=== PATIENT | female | born 1950 | race Caucasian/White ===

== ENCOUNTER 2017-07-16 14:58 | Emergency (ER) | payer MEDICARE, SELFPAY ==
[2017-07-16 15:00] VITALS: BP 150/100; PULSE 88; RESP 16; TEMP 36.6; O2SAT 99; BMI 27.4
[2017-07-16 15:43] LABS: Basophils # 0.1 K/mm3 (0-0.2); Basophils % 0.8 % (0.1-2.0); Eosinophils # 0.1 K/mm3 (0.0-0.4); Eosinophils % 1.5 % (0.1-12.0); Hematocrit 42.1 % (37.0-47.0); Hemoglobin 13.5 g/dL (12.2-16.2); Lymphocytes # 1.3 K/mm3 (0.7-4.5); Lymphocytes % 22.6 K/mm3 (10-50); Mean Corpuscular HGB Conc 32.2 g/dL (31.8-35.4); Mean Corpuscular Hemoglobin 31.3 pg (27.0-31.2); Mean Corpuscular Volume 97.3 fl (81-99); Mean Platelet Volume 8.2 fl (7.4-10.4); Monocytes # 0.4 K/mm3 (0.1-1.0); Monocytes % 6.5 % (1.7-9.3); Neutrophils # 3.9 K/mm3 (1.8-7.8); Neutrophils % 68.6 % (37.0-80.0); Platelet Count 319 K/mm3 (142-424); Red Blood Count 4.33 M/mm3 (4.20-5.40); Red Cell Distribution Width 12.7 % (11.5-17.5); White Blood Count 5.7 K/mm3 (4.8-10.8)
[2017-07-16 15:46] LABS: Anion Gap 10.4 mEq/L (5-15); Blood Urea Nitrogen 9 mg/dL (7-18); Carbon Dioxide 29 mmol/L (21.0-32.0); Chloride 97 mmol/L (98-107); Creatinine Clearance Estimated 35 mL/min (0-300); Creatinine,Serum 1.83 mg/dL (0.55-1.02); Estimated Glomerular Filt Rate 28 ml/min (>60); GFR (African American) 34 ML/MIN (>60); Potassium 3.4 mmoL/L (3.5-5.1); Sodium 133 mmol/L (136-145)
[2017-07-16 15:48] LABS: Glucose 549 mg/dL (74-106); Lactic Acid 2.4 mmol/L (0.4-2.0)
--- NOTE | 2017-07-16 15:48 | HMH.EDSKAF ---
ED Disposition Clinical Impression: Skin abscess, Diabetes, Poor social situation Disposition: Home, Self-Care Condition on Discharge: Fair Instructions: DI for Skin Abscess Additional Instructions: 1- daily wound dressing. 2- wear loose cloth, no rubbing cloth. 3- start bactrim DS and muporicin . 4- see Kait Monsalve 5- obtain refill if needed. 6- return for fever or vomiting or worse rash. Prescriptions: Mupirocin Calcium [Mupirocin 2% Cream 15gm] 1 applicatio TP BID #1 tube Sulfamethoxazole/Trimethoprim [Bactrim DS tablet] 1 each PO BID #30 tab Referrals: Kait Escoto APRN [Primary Care Provider] - - Critical Care Critical Care Time: No Attestation: On 07/16/17, the high probability of a clinically significant, sudden or life threatening deterioration of the following system(s) required my full and direct attention, intervention and personal management. The time I documented below is in addition to time spent performing reported procedures but includes the following listed in this critical care notation. Medical Decision Making - Kaveh Inquiry Pt receiving controlled substance: No Kaveh was queried for this patient: No Vital Signs: 07/16/17 15:00 Temperature 97.8 F Temperature Source Oral Pulse Rate [Right Radial] 88 Respiratory Rate 16 Blood Pressure [Right Arm] 150/100 Blood Pressure Mean [Right Arm] 116 Blood Pressure Source [Right Arm] Automatic Cuff Blood Pressure Position [Right Arm] Sitting 02 Sat by Pulse Oximetry 99 Oxygen Delivery Method Room Air - Lab Data Lab Results 07/16/17 15:20: WBC 5.7, RBC 4.33, Hgb 13.5, Hct 42.1, MCV 97.3, MCH 31.3 H, MCHC 32.2, RDW 12.7, Plt Count 319, MPV 8.2, Neut % (Auto) 68.6, Lymph % (Auto) 22.6, [place] % (Auto) 6.5, Eos % (Auto) 1.5, Baso % (Auto) 0.8, Neut # (Auto) 3.9, Lymph # (Auto) 1.3, [place] # (Auto) 0.4, Eos # (Auto) 0.1, Baso # (Auto) 0.1 Result diagrams: 07/16/17 15:20 Orders (Tests/Meds): ORDERS Category Date Time Status Basic Metabolic Panel Stat Lab 07/16/17 15:20 Received Lactic Acid Stat Lab 07/16/17 15:20 Received Blood Culture Stat Micro 07/16/17 15:20 Received Skin/Abscess/FB HPI - General Chief complaint: Skin/Abscess/Foreign Body Stated complaint: possible spider bite Time Seen by Provider: 07/16/17 15:35 Mode of Arrival: EMS Limitations: No Limitations Description of Symptoms (Recalled from ER Triage Doc. by RN): AREA ON LLQ FOR TWO WEEKS. AREA DRAINING YELLOW, PURULENT DRAINAGE. PT USED ALCOHOL TO CLEAN A COUPLE OF TIMES. - History of Present Illness HPI narrative: 67 years old white female diabetic who developed a anterior abdominal wall skin abscess a week ago. Had no ride to go to her primary care physician but she did today so she came to the ER. The patient denies having any fever or chills nausea vomiting or chest pain. He does have a pinkish purulent discharge. MD complaint: rash, abscess/boil Onset (ago): day(s) (7 days.) Tetanus up to date: unsure Severity: mild Consistency: constant Relieving factors: none Exacerbating factors: none Context: none Associated symptoms: denies other symptoms - Related Data Previous Rx's Medication Instructions Recorded Mupirocin Calcium [Mupirocin 2% 1 applicatio TP BID #1 tube 07/16/17 Cream 15gm] Sulfamethoxazole/Trimethoprim 1 each PO BID #30 tab 07/16/17 [Bactrim DS tablet] Allergies Allergy/AdvReac Type Severity Reaction Status Date / Time codeine [CODEINE] Allergy Mild Unverified 04/18/17 14:51 STRAWBERRIES (FOOD) Allergy Intermediate RASH, SOB, Uncoded 04/18/17 14:51 ITCHING [facility] History I have reviewed the patient's past medical history: Yes Medical History: Reports:: Diabetes Mellitus Type 2 Denies:: Cancer, Diabetes Mellitus Type 1, MRSA Amputation: No Fractures: No - Social History Alcohol Intake: never - Psychiatric History Expresses thoughts of harming self/others: None S
[2017-07-16 15:49] LABS: Reflex Lactic Add Lactic Reflex
--- NOTE | 2017-07-16 15:51 | ED_ITS ---
ED Disposition Clinical Impression: Skin abscess, Diabetes, Poor social situation Disposition: Home, Self-Care Condition on Discharge: Fair Instructions: DI for Skin Abscess Additional Instructions: 1- daily wound dressing. 2- wear loose cloth, no rubbing cloth. 3- start bactrim DS and muporicin . 4- see Kait Monsalve 5- obtain refill if needed. 6- return for fever or vomiting or worse rash. Prescriptions: Mupirocin Calcium [Mupirocin 2% Cream 15gm] 1 applicatio TP BID #1 tube Sulfamethoxazole/Trimethoprim [Bactrim DS tablet] 1 each PO BID #30 tab Referrals: Kait Escoto APRN [Primary Care Provider] - - Critical Care Critical Care Time: No Attestation: On 07/16/17, the high probability of a clinically significant, sudden or life threatening deterioration of the following system(s) required my full and direct attention, intervention and personal management. The time I documented below is in addition to time spent performing reported procedures but includes the following listed in this critical care notation. Medical Decision Making - Kaveh Inquiry Pt receiving controlled substance: No Kaveh was queried for this patient: No Vital Signs: 07/16/17 15:00 Temperature 97.8 F Temperature Source Oral Pulse Rate [Right Radial] 88 Respiratory Rate 16 Blood Pressure [Right Arm] 150/100 Blood Pressure Mean [Right Arm] 116 Blood Pressure Source [Right Arm] Automatic Cuff Blood Pressure Position [Right Arm] Sitting 02 Sat by Pulse Oximetry 99 Oxygen Delivery Method Room Air - Lab Data Lab Results 07/16/17 15:20: WBC 5.7, RBC 4.33, Hgb 13.5, Hct 42.1, MCV 97.3, MCH 31.3 H, MCHC 32.2, RDW 12.7, Plt Count 319, MPV 8.2, Neut % (Auto) 68.6, Lymph % (Auto) 22.6, [place] % (Auto) 6.5, Eos % (Auto) 1.5, Baso % (Auto) 0.8, Neut # (Auto) 3.9 , Lymph # (Auto) 1.3, [place] # (Auto) 0.4, Eos # (Auto) 0.1, Baso # (Auto) 0.1 Result diagrams: 07/16/17 15:20 Orders (Tests/Meds): ORDERS Category Date Time Status Basic Metabolic Panel Stat Lab 07/16/17 15:20 Received Lactic Acid Stat Lab 07/16/17 15:20 Received Blood Culture Stat Micro 07/16/17 15:20 Received Skin/Abscess/FB HPI - General Chief complaint: Skin/Abscess/Foreign Body Stated complaint: possible spider bite Time Seen by Provider: 07/16/17 15:35 Mode of Arrival: EMS Limitations: No Limitations Description of Symptoms (Recalled from ER Triage Doc. by RN): AREA ON LLQ FOR TWO WEEKS. AREA DRAINING YELLOW, PURULENT DRAINAGE. PT USED ALCOHOL TO CLEAN A COUPLE OF TIMES. - History of Present Illness HPI narrative: 67 years old white female diabetic who developed a anterior abdominal wall skin abscess a week ago. Had no ride to go to her primary care physician but she did today so she came to the ER. The patient denies having any fever or chills nausea vomiting or chest pain. He does have a pinkish purulent discharge. MD complaint: rash, abscess/boil Onset (ago): day(s) (7 days.) Tetanus up to date: unsure Severity: mild Consistency: constant Relieving factors: none Exacerbating factors: none Context: none Associated symptoms: denies other symptoms - Related Data Previous Rx's Medication Instructions Recorded Mupirocin Calcium [Mupirocin 2% 1 applicatio TP BID #1 tube 07/16/17 Cream 15
[2017-07-16 17:31] VITALS: BP 153/100; PULSE 88; RESP 16; TEMP 36.6; O2SAT 97
== END 2017-07-16 17:15 | disposition home or self-care (01) ==
PROVIDERS: Emergency Provider Emergency Medicine; Family Provider Family Medicine; PCP Nurse Practitioner Family
DX: L02.211 Cutaneous abscess of abdominal wall (principal); E11.9 Type 2 diabetes mellitus without complications; Z88.6 Allergy status to analgesic agent
CPT/HCPCS: 80048; 83605; 85025; 87040; 87070; 87077; 87186; 87205; 99283

== ENCOUNTER 2018-04-05 09:12 | Inpatient (IN) ==
[2018-04-05 10:48] LABS: Blood Urea Nitrogen 82 mg/dL (7-18)
[2018-04-05 11:48] LABS: Basophils # 0.1 K/mm3 (0-0.2); Basophils % 0.5 % (0.1-2.0); Eosinophils # 0.2 K/mm3 (0.0-0.4); Eosinophils % 1.4 % (0.1-12.0); Hematocrit 40.7 % (37.0-47.0); Hemoglobin 12.1 g/dL (12.2-16.2); Lymphocytes # 2.2 K/mm3 (0.7-4.5); Lymphocytes % 18.4 % (10-50); Mean Corpuscular HGB Conc 29.7 g/dL (31.8-35.4); Mean Corpuscular Hemoglobin 30.6 pg (27.0-31.2); Mean Corpuscular Volume 102.9 fl (81-99); Mean Platelet Volume 8.8 fl (7.4-10.4); Monocytes # 0.5 K/mm3 (0.1-1.0); Monocytes % 3.9 % (1.7-9.3); Neutrophils # 8.9 K/mm3 (1.8-7.8); Neutrophils % 75.9 % (37.0-80.0); Platelet Count 346 K/mm3 (142-424); Red Blood Count 3.95 M/mm3 (4.20-5.40); Red Cell Distribution Width 14.2 % (11.5-17.5); White Blood Count 11.8 K/mm3 (4.8-10.8)
[2018-04-05 11:54] LABS: Albumin Level 2.2 gm/dL (3.4-5.0); Albumin/Globulin Ratio 0.4 (1.1-1.8); Anion Gap 11.2 mEq/L (5-15); Bilirubin,Total 0.2 mg/dL (0.2-1.0); Calcium 8.9 mg/dL (8.5-10.1); Globulin 4.9 gm/dl (1.3-3.2); Potassium 5.2 mmoL/L (3.5-5.1); Total Protein,Serum 7.1 gm/dL (6.4-8.2)
[2018-04-05 12:53] LABS: Microscopic, Urine URINE MICROSCOPIC (MICROSCOPIC)
[2018-04-05 12:54] LABS: Appearance,Urine Turbid (Clear); Bilirubin,Urine Negative (Negative); Blood, Urine 1+ (Negative); Color,Urine YELLOW (Yellow); Glucose,Urine (UA) TRACE (Negative); Ketones,Urine Negative (Negative); Leukocyte Esterase,Urine 3+ (Negative); Protein,Urine 2+ (Negative); Specific Gravity, Urine 1.025 (1.005-1.030); Urobilinogen,Urine 0.2 EU/dl (0.2)
[2018-04-05 13:25] LABS: WBC,Urine TNTC #/hpf (0-3)
[2018-04-05 13:26] LABS: Bacteria,Urine 2+ /lpf; Fine Granular Casts,Urine Occasional #/lpf (0); Squamous Epithelial Cell,Urine Occasional #/hpf (0-5)
--- NOTE | 2018-04-05 13:31 | Pharmacy Consult Notes ---
[facility] Pharmacy VTE Monitoring - Patient Demographics Admission date: 04/05/18 Report Date: 04/05/18 Time: 13:31 Allergies/Adverse Reactions: Patient Allergies strawberry Allergy (Intermediate, Verified 04/05/18 13:31) RASH,SOB,ITCHING codeine [CODEINE] Allergy (Mild, Verified 04/05/18 13:31) UNKNOWN Height: 1.63 m Weight: 69.853 kg - VTE Risk Labs: VTE Related Lab Results Hgb 12.1 g/dL (12.2-16.2) L 04/05/18 11:30 Hct 40.7 % (37.0-47.0) 04/05/18 11:30 Plt Count 346 K/mm3 (142-424) 04/05/18 11:30 BUN 81 mg/dL (7-18) H 04/05/18 11:30 Creatinine 2.30 mg/dL (0.55-1.02) H 04/05/18 11:30 Estimated Creat Clear 27 mL/min (50-200) 04/05/18 11:30 - Prophylaxis VTE Prophylaxis Ordered?: Yes Types of VTE Prophylaxis: Pharmacological Pharmacologic Type: Enoxaparin - VTE Diagnosis Confirmed Treatment or plan recommended: Continue Current Treatment
--- NOTE | 2018-04-05 16:59 | History & Physical Report ---
*Admission Date: 04/05/18 *Chief complaint: weakness, loss of appetite, weight loss *History of present illness: 68 year old female with a history of breast cancer, diabetes, hypertension, hyperlipidemia, CVA with left sided hemiplegia and hypothyroidism who resides at [facility] has had ongoing issues with weight loss over the last two months. Patient has lost approx 40 pounds over the last 2-3 months. She was started on Remeron for appetite and dietary supplements were added were added which continued weight loss. She was sent to ENT for evaluation of thyroid nodules who recommended FU US in 6 months. Soft tissue mass was found on the right side of her neck and she was scheduled for soft tissue US of the neck and CT of chest, abdomen and pelvis to evaluate for underlying pathology. Labs were obtained per radiology protocol on Monday which showed creatinine of 1.4 and potassium of 5.8. Lasix and potassium were stopped. Patient was brought to [facility] today for CT Scan and Ultrasound. Repeat labs showed BUN 82 with creatinine of around 2.3. Baseline creatine is less than 1. Patient was sent to outpatient infusion for IVF's and additional labs. She was found to have transaminitis, dehydration and UTI. Patient reports she feels "weak." Denies any cough, cold, congestion or urinary symptoms. Patient was direct admitted to acute care for IVF's, IV antibiotics and further evaluation. [facility] History I have reviewed the patient's past medical history: Yes Medical History: Reports:: Diabetes Mellitus Type 2 Denies:: Cancer, Diabetes Mellitus Type 1, Internal Pacemaker, MRSA Other Medical History: Reports: Hypothyroidism Other Surgeries: No: Pacemaker Amputation: No Fractures: No - *Social History Smoking Status: Never smoker Alcohol Intake: never Substance Use Type: crack/cocaine Occupational Status: disabled Housing: fpc - Psychiatric History Expresses thoughts of harming self/others: None Suicide Plan Description: No Plan Review of Systems - Review of Systems Review of systems:: pertinent systems reviewed and negative unless documented b elow - Constitutional Reports malaise, Reports weakness, Reports weight loss - *Neurologic Reports confusion, Reports other Comments: left sided hemiplegia Meds Home Medications Medication Instructions Recorded Confirmed Type Acetaminophen [Tylenol] 650 mg PO Q6HP PRN 04/05/18 04/05/18 History Albuterol Sulfate [Albuterol HFA 1 puff IH Q4HP PRN 04/05/18 04/05/18 History Inhaler] Aspirin [Aspirin 81mg chewable 81 mg PO DAILY 04/05/18 04/05/18 History tab] Atorvastatin Calcium [Atorvastatin 40 mg PO HS 04/05/18 04/05/18 History 40mg Tab] Ibuprofen [Motrin 600mg 600 mg PO BIDP PRN 04/05/18 04/05/18 History Tablet] Insulin Glargine,Hum.rec.anlog 15 unit SQ HS 04/05/18 04/05/18 History [Insulin Glargine 100 Units/mL 3mL flexpen] L. Acidophilus/Strept/LA P-Noah 1 cap PO DAILY 04/05/18 04/05/18 History [Jory-Q Probiotic Capsule] Levothyroxine Sodium 150 mcg PO DAILY 04/05/18 04/05/18 History [Levothyroxine 150mcg (0.15mg) Tab] Lisinopril [Lisinopril 40mg Tablet] 40 mg PO DAILY 04/05/18 04/05/18 History Loperamide HCl [Loperamide] 2 mg PO Q4HP PRN 04/05/18 04/05/18 History Metoprolol Tartrate 100 mg PO BID 04/05/18 04/05/18 History Mirtazapine [Remeron] 30 mg PO HS 04/05/18 04/05/18 History Multivit with Iron,Hematinic 1 each PO DAILY 04/05/18 04/05/18 History [Central-Jerry] PARoxetine HCl [Paxil] 40 mg PO HS 04/05/18 04/05/18 History cloNIDine HCl [cloNIDine 0.1mg 0.1 mg PO Q4HP PRN 04/05/18 04/05/18 History Tablet] raNITIdine HCl [Ranitidine HCl] 150 mg PO BID 04/05/18 04/05/18 History risperiDONE [Risperdal 0.25mg 0.25 mg PO HS 04/05/18 04/05/18 History Tablet] Allergies Allergy/AdvReac Type Severity Reaction Status Date / Time strawberry Allergy Intermediate RASH,SOB,IT Verified 04/05/18 13:31 [place] codeine [CODEINE] Allergy Mild UNKNOWN Verified 04/05/18 13:31 Exam Vital signs and Labs for Last 24 Hours: Temp Pulse Resp BP Pulse Ox 98.5 F 80 16 182/98 H 96 04/05/18 15:56 04/05/18 15:56 04/05/18 15:56 04/05/18 15:56 04/05/18 15:56 Laboratory Results - last 24 hr 04/05/18 10:17: BUN 82 H, Creatinine 2.32 H, Estimated GFR 21 L, Est GFR ( Amer) 25 L 04/05/18 11:30: WBC 11.8 H, RBC 3.95 L, Hgb 12.1 L, Hct 40.7, MCV 102.9 H, MCH 30.6, MCHC 29.7 L, RDW 14.2, Plt Count 346, MPV 8.8, Neut % (Auto) 75.9, Lymph % (Auto) 18.4, [place] % (Auto) 3.9, Eos % (Auto) 1.4, Baso % (Auto) 0.5, Neut # (Auto) 8.9 H, Lymph # (Auto) 2.2, [place] # (Auto) 0.5, Eos # (Auto) 0.2, Baso # (Auto) 0.1 04/05/18 11:30: Sodium 148 H, Potassium 5.2 H, Chloride 112 H, Carbon Dioxide 30, Anion Gap 11.2, BUN 81 H, Creatinine 2.30 H, Estimated Creat Clear 27, Estimated GFR 21 L, Est GFR ( Amer) 26 L, Glucose 420 H*, Calcium 8.9, Total Bilirubin 0.2, AST 81 H, ALT 102 H, Alkaline Phosphatase 264 H, Total Protein 7.1, Albumin 2.2 L, Globulin 4.9 H, Albumin/Globulin Ratio 0.4 L 04/05/18 11:30: Acetone Level None detected 04/05/18 12:20: Urine Color Yellow, Urine Appearance Turbid, Urine pH 6.0, Ur Specific [place] 1.025, Urine Protein 2+, Urine Glucose (UA) Trace, Urine Ketones Negative, Urine Blood 1+, Urine Nitrate Negative, Urine Bilirubin Negative, Urine Urobilinogen 0.2, Ur Leukocyte Esterase 3+ A, Urine WBC Tntc, Ur Squamous Epith Cells Occasional, Urine Bacteria 2+, Fine Granular Casts Occasional I & O for Last 24 hours: Intake & Output 04/03/18 04/04/18 04/05/18 04/06/18 11:59 11:59 11:59 11:59 Weight 154 lb 155 lb 5 oz Narrative: Alert and oriented to self. Pleasant, cooperative. Left sided facial droop. Left sided hemiplegia from previous CVA. Mucous membranes dry. Skin pale and dry. Lung sounds clear and equal. Rate and rhythm regular. No LE edema. Abdomen soft and nontender. Assessment and Plan (1) Dehydration Current visit: Yes Status: Acute Category: Medical Code(s): E86.0 - Dehydration (2) YURI (acute kidney injury) Current visit: Yes Status: Acute Category: Medical Code(s): N17.9 - Acute kidney failure, unspecified (3) Weight loss Current visit: Yes Status: Acute Category: Medical Code(s): R63.4 - Abnormal weight loss (4) Loss of appetite Current visit: Yes Status: Acute Category: Medical Code(s): R63.0 - Anorexia (5) UTI (urinary tract infection) Current visit: Yes Status: Acute Category: Medical Code(s): N39.0 - Urinary tract infection, site not specified (6) Transaminitis Current visit: Yes Status: Acute Category: Medical Code(s): R74.0 - Nonspecific elevation of levels of transaminase and lactic acid dehydrogenase [LDH] (7) Cerebrovascular accident Current visit: No Status: Chronic Qualifiers: CVA mechanism: unspecified Qualified Code(s): I63.9 - Cerebral infarction, unspecified Category: Medical Code(s): I63.9 - Cerebral infarction, unspecified (8) Diabetes Current visit: No Status: Chronic Qualifiers: Diabetes mellitus type: type 1 Diabetes mellitus complication status: with unspecified complications Qualified Code(s): E10.8 - Type 1 diabetes mellitus with unspecified complications Category: Medical Code(s): E11.9 - Type 2 diabetes mellitus without complications (9) HTN (hypertension) Current visit: No Status: Chronic Qualifiers: Hypertension type: unspecified Qualified Code(s): I10 - Essential (primary) hypertension Category: Medical Code(s): I10 - Essential (primary) hypertension - Assessment and plan all Dx Assessment and Plan for all problems:: I am curious to see what her CT Scans and Ultrasound will show. Aggressive hydration with IVF's. Speech therapy consult for swallowing eval as nurse reports coughing with liquids. Ceftriaxone for UTI. Blood and urine cultures pending. Will recheck labs in the am.
[2018-04-06 06:16] LABS: Basophils # 0.1 K/mm3 (0-0.2); Basophils % 0.6 % (0.1-2.0); Eosinophils # 0.4 K/mm3 (0.0-0.4); Hematocrit 36.2 % (37.0-47.0); Lymphocytes # 3.6 K/mm3 (0.7-4.5); Lymphocytes % 29.8 % (10-50); Mean Corpuscular HGB Conc 29.8 g/dL (31.8-35.4); Mean Corpuscular Hemoglobin 30.6 pg (27.0-31.2); Mean Corpuscular Volume 102.5 fl (81-99); Mean Platelet Volume 8.3 fl (7.4-10.4); Monocytes # 0.6 K/mm3 (0.1-1.0); Monocytes % 5.3 % (1.7-9.3); Neutrophils # 7.4 K/mm3 (1.8-7.8); Neutrophils % 61.3 % (37.0-80.0); Platelet Count 288 K/mm3 (142-424); Red Blood Count 3.53 M/mm3 (4.20-5.40); Red Cell Distribution Width 14.4 % (11.5-17.5); White Blood Count 12.1 K/mm3 (4.8-10.8)
[2018-04-06 06:23] LABS: Hemoglobin 10.8 g/dL (12.2-16.2)
[2018-04-06 06:28] LABS: Albumin Level 1.9 gm/dL (3.4-5.0); Albumin/Globulin Ratio 0.4 (1.1-1.8); Anion Gap 11.5 mEq/L (5-15); Bilirubin,Total 0.3 mg/dL (0.2-1.0); Calcium 8.2 mg/dL (8.5-10.1); Globulin 4.5 gm/dl (1.3-3.2); Total Protein,Serum 6.4 gm/dL (6.4-8.2)
[2018-04-06 06:41] LABS: Potassium 4.5 mmoL/L (3.5-5.1)
--- NOTE | 2018-04-06 08:49 | Progress Note ---
Internal Medicine - PN: Subj *Date: 04/06/18 *Time: 08:48 Interval history: Patient is much more alert. Able to speak, continues to have significant facial drooping. Exam Vital signs and Labs for Last 24 Hours: Temp Pulse Resp BP Pulse Ox 97.5 F L 70 17 167/97 H 96 04/06/18 08:00 04/06/18 08:00 04/06/18 08:00 04/06/18 08:00 04/06/18 08:00 Laboratory Results - last 24 hr 04/05/18 10:17: BUN 82 H, Creatinine 2.32 H, Estimated GFR 21 L, Est GFR ( Amer) 25 L 04/05/18 11:30: WBC 11.8 H, RBC 3.95 L, Hgb 12.1 L, Hct 40.7, MCV 102.9 H, MCH 30.6, MCHC 29.7 L, RDW 14.2, Plt Count 346, MPV 8.8, Neut % (Auto) 75.9, Lymph % (Auto) 18.4, [place] % (Auto) 3.9, Eos % (Auto) 1.4, Baso % (Auto) 0.5, Neut # (Auto) 8.9 H, Lymph # (Auto) 2.2, [place] # (Auto) 0.5, Eos # (Auto) 0.2, Baso # (Auto) 0.1 04/05/18 11:30: Sodium 148 H, Potassium 5.2 H, Chloride 112 H, Carbon Dioxide 30, Anion Gap 11.2, BUN 81 H, Creatinine 2.30 H, Estimated Creat Clear 27, Estimated GFR 21 L, Est GFR ( Amer) 26 L, Glucose 420 H*, Calcium 8.9, Total Bilirubin 0.2, AST 81 H, ALT 102 H, Alkaline Phosphatase 264 H, Total Protein 7.1, Albumin 2.2 L, Globulin 4.9 H, Albumin/Globulin Ratio 0.4 L 04/05/18 11:30: Acetone Level None detected 04/05/18 12:20: Urine Color Yellow, Urine Appearance Turbid, Urine pH 6.0, Ur Specific [place] 1.025, Urine Protein 2+, Urine Glucose (UA) Trace, Urine Ketones Negative, Urine Blood 1+, Urine Nitrate Negative, Urine Bilirubin Negative, Urine Urobilinogen 0.2, Ur Leukocyte Esterase 3+ A, Urine WBC Tntc, Ur Squamous Epith Cells Occasional, Urine Bacteria 2+, Fine Granular Casts Occasio nal 04/05/18 16:36: POC Glucose 368 H* 04/05/18 21:14: POC Glucose 179 H 04/06/18 05:43: WBC 12.1 H, RBC 3.53 L, Hgb 10.8 L D, Hct 36.2 L, MCV 102.5 H, MCH 30.6, MCHC 29.8 L, RDW 14.4, Plt Count 288, MPV 8.3, Neut % (Auto) 61.3, Lymph % (Auto) 29.8, [place] % (Auto) 5.3, Eos % (Auto) 3.0, Baso % (Auto) 0.6, Neut # (Auto) 7.4, Lymph # (Auto) 3.6, [place] # (Auto) 0.6, Eos # (Auto) 0.4, Baso # (Auto) 0.1 04/06/18 05:43: Sodium 153 H*, Potassium 4.5, Chloride 119 H, Carbon Dioxide 27, Anion Gap 11.5, BUN 69 H, Creatinine 1.64 H D, Estimated Creat Clear 38, Estimated GFR 31 L, Est GFR ( Amer) 38 L D, Glucose 97 D, Calcium 8.2 L, Total Bilirubin 0.3, AST 44 H D, ALT 71 D, Alkaline Phosphatase 207 H, Total Protein 6.4, Albumin 1.9 L D, Globulin 4.5 H, Albumin/Globulin Ratio 0.4 L 04/06/18 06:05: POC Glucose 76 I & O for Last 24 hours: Intake & Output 04/03/18 04/04/18 04/05/18 04/06/18 11:59 11:59 11:59 11:59 Intake Total 3566 / 3566 Output Total 950 / 950 Balance 2616 / 2616 Weight 154 lb 155 lb 5 oz Microbiology Reports for the Last 24 Hours: Microbiology 04/05/18 12:20 Urine,Catheterized Urine Culture - Preliminary Gram Negative Rods Narrative: Much more alert. Breathing easily. Heart rate regular. Abdomen soft, facial drooping and significant kriss-parous is still noted. No skin turgor issues this morning. Assessment and Plan (1) Dehydration Current visit: Yes Status: Acute Category: Medical Code(s): E86.0 - Dehydration (2) YURI (acute kidney injury) Current visit: Yes Status: Acute Category: Medical Code(s): N17.9 - Acute kidney failure, unspecified (3) Weight loss Current visit: Yes Status: Acute Category: Medical Code(s): R63.4 - Abnormal weight loss (4) Loss of appetite Current visit: Yes Status: Acute Category: Medical Code(s): R63.0 - Anorexia (5) UTI (urinary tract infection) Current visit: Yes Status: Acute Category: Medical Code(s): N39.0 - Urinary tract infection, site not specified (6) Transaminitis Current visit: Yes Status: Acute Category: Medical Code(s): R74.0 - Nonspecific elevation of levels of transaminase and lactic acid dehydrogenase [LDH] (7) Cerebrovascular accident Current visit: No Status: Chronic Qualifiers: CVA mechanism: unspecified Qualified Code(s): I63.9 - Cerebral infarction, unspecified Category: Medical Code(s): I63.9 - Cerebral infarction, unspecified (8) Diabetes Current visit: No Status: Chronic Qualifiers: Diabetes mellitus type: type 1 Diabetes mellitus complication status: with unspecified complications Qualified Code(s): E10.8 - Type 1 diabetes mellitus with unspecified complications Category: Medical Code(s): E11.9 - Type 2 diabetes mellitus without complications (9) HTN (hypertension) Current visit: No Status: Chronic Qualifiers: Hypertension type: unspecified Qualified Code(s): I10 - Essential (primary) hypertension Category: Medical Code(s): I10 - Essential (primary) hypertension - Assessment and plan all Dx Assessment and Plan for all problems:: Labs are improving. Set for sodium. Plan will be to continue hydration. I have asked nutrition to evaluate her for free water/calorie assessment need Family has recently decided that she should maintain a DNR status so this may preclude G-tube placement. However this may be necessary if the family wishes to continue aggressive care. We will reschedule CT scan for later date when kidney injury has resolved.
[2018-04-07 06:24] LABS: Basophils # 0.1 K/mm3 (0-0.2); Basophils % 0.7 % (0.1-2.0); Eosinophils # 0.2 K/mm3 (0.0-0.4); Eosinophils % 2.6 % (0.1-12.0); Hematocrit 32.4 % (37.0-47.0); Hemoglobin 9.8 g/dL (12.2-16.2); Lymphocytes % 21.5 % (10-50); Mean Corpuscular HGB Conc 30.4 g/dL (31.8-35.4); Mean Corpuscular Hemoglobin 30.6 pg (27.0-31.2); Mean Corpuscular Volume 100.5 fl (81-99); Mean Platelet Volume 8.6 fl (7.4-10.4); Monocytes # 0.4 K/mm3 (0.1-1.0); Monocytes % 4.1 % (1.7-9.3); Neutrophils # 6.6 K/mm3 (1.8-7.8); Neutrophils % 71.1 % (37.0-80.0); Platelet Count 291 K/mm3 (142-424); Red Blood Count 3.22 M/mm3 (4.20-5.40); Red Cell Distribution Width 14.3 % (11.5-17.5); White Blood Count 9.3 K/mm3 (4.8-10.8)
[2018-04-07 06:42] LABS: Anion Gap 12.2 mEq/L (5-15); Calcium 7.7 mg/dL (8.5-10.1); Potassium 4.2 mmoL/L (3.5-5.1)
--- NOTE | 2018-04-07 07:10 | Progress Note ---
Internal Medicine - PN: Subj *Date: 04/07/18 *Time: 08:12 Interval history: PAtient had no acute events overnight. Remained hemodynamically stable. Sodium remains elevated. No changes on current fluid regimen. Denies SOA, CP, MEJIAS. Reports she is trying to drink water. Nursing reports she is difficult to get to take medications or oral nutrition. She is capable, just poorly cooperative. Exam Vital signs and Labs for Last 24 Hours: Temp Pulse Resp BP Pulse Ox 98.2 F 67 18 141/78 H 94 L 04/07/18 04:00 04/07/18 04:00 04/07/18 04:00 04/07/18 04:00 04/07/18 04:00 Laboratory Results - last 24 hr 04/05/18 12:20: Urine Color Yellow, Urine Appearance Turbid, Urine pH 6.0, Ur Specific Green 1.025, Urine Protein 2+, Urine Glucose (UA) Trace, Urine Ketones Negative, Urine Blood 1+, Urine Nitrate Negative, Urine Bilirubin Negative, Urine Urobilinogen 0.2, Ur Leukocyte Esterase 3+ A, Urine WBC Tntc, Ur Squamous Epith Cells Occasional, Urine Bacteria 2+, Fine Granular Casts Occasional 04/06/18 12:01: POC Glucose 115 H 04/06/18 16:45: POC Glucose 140 H 04/06/18 21:11: POC Glucose 120 H 04/07/18 05:38: POC Glucose 126 H 04/07/18 05:55: WBC 9.3, RBC 3.22 L, Hgb 9.8 L, Hct 32.4 L, MCV 100.5 H, MCH 30.6, MCHC 30.4 L, RDW 14.3, Plt Count 291, MPV 8.6, Neut % (Auto) 71.1, Lymph % (Auto) 21.5, [place] % (Auto) 4.1, Eos % (Auto) 2.6, Baso % (Auto) 0.7, Neut # (Auto) 6.6, Lymph # (Auto) 2.0, [place] # (Auto) 0.4, Eos # (Auto) 0.2, Baso # (Auto) 0.1 04/07/18 05:55: Sodium 153 H*, Potassium 4.2, Chloride 120 H, Carbon Dioxide 25, Anion Gap 12.2, BUN 56 H, Creatinine 1.30 H D, Estimated Creat Clear 47, Estimated GFR 41 L, Est GFR ( Amer) 50 L D, Glucose 143 H, Calcium 7.7 L I & O for Last 24 hours: Intake & Output 04/04/18 04/05/18 04/06/18 04/07/18 23:59 23:59 23:59 23:59 Intake Total 1825 / 1825 2281 / 2281 Output Total 500 / 500 1050 / 1050 725 / 725 Balance 1325 / 1325 1231 / 1231 -725 / -725 Weight 70.449 kg 70.449 kg Microbiology Reports for the Last 24 Hours: Microbiology 04/05/18 12:20 Urine,Catheterized Urine Culture - Final Escherichia coli Narrative: Lying in bed on exam, alert and interactive though trying to sleep through exam. - Breathing easily, mild bibasilar crackles - Heart rate regular. - Abdomen soft, bowel sounds active - facial drooping and significant kriss-parous is still noted. No skin turgor issues this morning. -Right breast with missing areole and nipple, scarring from previous breast cancer surgery. No scarring in axilla Assessment and Plan (1) Dehydration Current visit: Yes Status: Acute Category: Medical Code(s): E86.0 - Dehydration (2) YURI (acute kidney injury) Current visit: Yes Status: Acute Category: Medical Code(s): N17.9 - Acute kidney failure, unspecified (3) Weight loss Current visit: Yes Status: Acute Category: Medical Code(s): R63.4 - Abnormal weight loss (4) Loss of appetite Current visit: Yes Status: Acute Category: Medical Code(s): R63.0 - Anorexia (5) UTI (urinary tract infection) Current visit: Yes Status: Acute Category: Medical Code(s): N39.0 - Urinary tract infection, site not specified (6) Transaminitis Current visit: Yes Status: Acute Category: Medical Code(s): R74.0 - Nonspecific elevation of levels of transaminase and lactic acid dehydrogenase [LDH] (7) Cerebrovascular accident Current visit: No Status: Chronic Qualifiers: CVA mechanism: unspecified Qualified Code(s): I63.9 - Cerebral infarction, unspecified Category: Medical Code(s): I63.9 - Cerebral infarction, unspecified (8) Diabetes Current visit: No Status: Chronic Qualifiers: Diabetes mellitus type: type 1 Diabetes mellitus complication status: with unspecified complications Qualified Code(s): E10.8 - Type 1 diabetes mellitus with unspecified complications Category: Medical Code(s): E11.9 - Type 2 diabetes mellitus without complications (9) HTN (hypertension) Current visit: No Status: Chronic Qualifiers: Hypertension type: unspecified Qualified Code(s): I10 - Essential (primary) hypertension Category: Medical Code(s): I10 - Essential (primary) hypertension (10) Hypernatremia Current visit: Yes Status: Acute Category: Medical Code(s): E87.0 - Hyperosmolality and hypernatremia (11) Hyperchloremia Current visit: Yes Status: Acute Category: Medical Code(s): E87.8 - Other disorders of electrolyte and fluid balance, not elsewhere classified - Assessment and plan all Dx Assessment and Plan for all problems:: Labs are stable except for sodium. Sodium has not changed from 153 in the past 24 hours. Patient continued on normal saline overnight. Transition to half normal saline this morning at 100. Recheck sodium this afternoon at 6 PM. If corrects faster than 5 points in 12 hours, decrease half-normal to 75 an hour to slowly correct free water deficit. Continue to push p.o. fluids. Nutrition consulted to evaluate her for free water/calorie assessment need. Family has recently decided that she should maintain a DNR status so this may preclude G-tube placement. However this may be necessary if the family wishes to continue aggressive care. We will reschedule CT scan for later date when kidney injury has resolved.
[2018-04-07 19:21] LABS: Anion Gap 11.2 mEq/L (5-15); Calcium 8.3 mg/dL (8.5-10.1); Potassium 4.2 mmoL/L (3.5-5.1)
[2018-04-08 08:32] LABS: Anion Gap 12.9 mEq/L (5-15); Calcium 8.4 mg/dL (8.5-10.1); Phosphorous 3.4 mg/dL (2.4-4.9); Potassium 3.9 mmoL/L (3.5-5.1)
--- NOTE | 2018-04-08 08:50 | Progress Note ---
Internal Medicine - PN: Subj *Date: 04/08/18 *Time: 08:48 Interval history: Patient ate approximately 25% of her diet through the day yesterday and did drink a fair amount of water according to the nursing staff. She wakes up and tells me that she is feeling "fine" but otherwise is unable to carry on an extended conversation. Exam Vital signs and Labs for Last 24 Hours: Temp Pulse Resp BP Pulse Ox 97.9 F 63 16 152/83 H 97 04/08/18 08:00 04/08/18 08:00 04/08/18 08:00 04/08/18 08:00 04/08/18 08:00 Laboratory Results - last 24 hr 04/07/18 11:31: POC Glucose 180 H 04/07/18 16:20: POC Glucose 100 04/07/18 19:05: Sodium 150 H, Potassium 4.2, Chloride 116 H, Carbon Dioxide 27, Anion Gap 11.2, BUN 47 H, Creatinine 1.28 H, Estimated Creat Clear 48, Estimated GFR 42 L, Est GFR ( Amer) 50 L, Glucose 112 H D, Calcium 8.3 L, Magnesium 1.6 04/07/18 20:27: POC Glucose 84 04/08/18 07:12: POC Glucose 126 H 04/08/18 08:10: Sodium 147 H, Potassium 3.9, Chloride 114 H, Carbon Dioxide 24, Anion Gap 12.9, BUN 44 H, Creatinine 1.20 H, Estimated Creat Clear 51, Estimated GFR 45 L, Est GFR ( Amer) 54 L, Glucose 119 H, Calcium 8.4 L, Phosphorus 3.4, Magnesium 1.7 I & O for Last 24 hours: Intake & Output 04/05/18 04/06/18 04/07/18 04/08/18 11:59 11:59 11:59 11:59 Intake Total 3566 / 3566 780 / 780 2575 / 2575 Output Total 950 / 950 1325 / 1325 1575 / 1575 Balance 2616 / 2616 -545 / -545 1000 / 1000 Weight 154 lb 155 lb 5 oz 155 lb 5.015 oz Microbiology Reports for the Last 24 Hours: Microbiology 04/05/18 13:55 Blood Blood Culture - Preliminary NO GROWTH AFTER 48 HOURS 04/05/18 13:50 Blood Blood Culture - Preliminary NO GROWTH AFTER 48 HOURS 04/05/18 12:20 Urine,Catheterized Urine Culture - Final Escherichia coli Narrative: Significant hemiplegia as previously noted. Oral mucous is moist, skin turgor is improved. Anterior lung milton clear. Heart rate regular. Abdomen soft, no edema or skin breakdown. Assessment and Plan (1) Dehydration Current visit: Yes Status: Acute Category: Medical Code(s): E86.0 - Dehydration (2) YURI (acute kidney injury) Current visit: Yes Status: Acute Category: Medical Code(s): N17.9 - Acute kidney failure, unspecified (3) Weight loss Current visit: Yes Status: Acute Category: Medical Code(s): R63.4 - Abnormal weight loss (4) Loss of appetite Current visit: Yes Status: Acute Category: Medical Code(s): R63.0 - Anorexia (5) UTI (urinary tract infection) Current visit: Yes Status: Acute Category: Medical Code(s): N39.0 - Urinary tract infection, site not specified (6) Transaminitis Current visit: Yes Status: Acute Category: Medical Code(s): R74.0 - Nonspecific elevation of levels of transaminase and lactic acid dehydrogenase [LDH] (7) Cerebrovascular accident Current visit: No Status: Chronic Qualifiers: CVA mechanism: unspecified Qualified Code(s): I63.9 - Cerebral infarction, unspecified Category: Medical Code(s): I63.9 - Cerebral infarction, unspecified (8) Diabetes Current visit: No Status: Chronic Qualifiers: Diabetes mellitus type: type 1 Diabetes mellitus complication status: with unspecified complications Qualified Code(s): E10.8 - Type 1 diabetes mellitus with unspecified complications Category: Medical Code(s): E11.9 - Type 2 diabetes mellitus without complications (9) HTN (hypertension) Current visit: No Status: Chronic Qualifiers: Hypertension type: unspecified Qualified Code(s): I10 - Essential (primary) hypertension Category: Medical Code(s): I10 - Essential (primary) hypertension (10) Hypernatremia Current visit: Yes Status: Acute Category: Medical Code(s): E87.0 - Hyperosmolality and hypernatremia (11) Hyperchloremia Current visit: Yes Status: Acute Category: Medical Code(s): E87.8 - Other disorders of electrolyte and fluid balance, not elsewhere classified - Assessment and plan all Dx Assessment and Plan for all problems:: Overall status is improving. Sodium is improved nicely. We will check this again tomorrow. Continue 1 more day of IV fluids. Patient would be a reasonable candidate for G-tube placement just to make sure her free water intake remains appropriate given her significant neurologic defects that disable her from obtaining appropriate fluids and food by mouth. I placed a call to her power of wire stretcher to discuss this possibility. Unfortunately, she has very limited family contact here in the hospital.
--- NOTE | 2018-04-08 12:18 | Progress Note ---
Internal Medicine - PN: Subj *Date: 04/08/18 *Time: 12:18 Exam Vital signs and Labs for Last 24 Hours: Temp Pulse Resp BP Pulse Ox 97.9 F 62 16 145/70 H 97 04/08/18 11:59 04/08/18 11:59 04/08/18 11:59 04/08/18 11:59 04/08/18 11:59 Laboratory Results - last 24 hr 04/07/18 16:20: POC Glucose 100 04/07/18 19:05: Sodium 150 H, Potassium 4.2, Chloride 116 H, Carbon Dioxide 27, Anion Gap 11.2, BUN 47 H, Creatinine 1.28 H, Estimated Creat Clear 48, Estimated GFR 42 L, Est GFR ( Amer) 50 L, Glucose 112 H D, Calcium 8.3 L, Magnesium 1.6 04/07/18 20:27: POC Glucose 84 04/08/18 07:12: POC Glucose 126 H 04/08/18 08:10: Sodium 147 H, Potassium 3.9, Chloride 114 H, Carbon Dioxide 24, Anion Gap 12.9, BUN 44 H, Creatinine 1.20 H, Estimated Creat Clear 51, Estimated GFR 45 L, Est GFR ( Amer) 54 L, Glucose 119 H, Calcium 8.4 L, Phosphorus 3.4, Magnesium 1.7 04/08/18 11:03: POC Glucose 88 I & O for Last 24 hours: Intake & Output 04/05/18 04/06/18 04/07/18 04/08/18 23:59 23:59 23:59 23:59 Intake Total 1825 / 1825 2281 / 2281 360 / 360 2455 / 2455 Output Total 500 / 500 1050 / 1050 1350 / 1350 950 / 950 Balance 1325 / 1325 1231 / 1231 -990 / -990 1505 / 1505 Weight 70.449 kg 70.449 kg Microbiology Reports for the Last 24 Hours: Microbiology 04/05/18 13:55 Blood Blood Culture - Preliminary NO GROWTH AFTER 48 HOURS 04/05/18 13:50 Blood Blood Culture - Preliminary NO GROWTH AFTER 48 HOURS Assessment and Plan (1) Dehydration Current visit: Yes Status: Acute Category: Medical Code(s): E86.0 - Dehydration (2) YURI (acute kidney injury) Current visit: Yes Status: Acute Category: Medical Code(s): N17.9 - Acute kidney failure, unspecified (3) Weight loss Current visit: Yes Status: Acute Category: Medical Code(s): R63.4 - Abnormal weight loss (4) Loss of appetite Current visit: Yes Status: Acute Category: Medical Code(s): R63.0 - Anorexia (5) UTI (urinary tract infection) Current visit: Yes Status: Acute Category: Medical Code(s): N39.0 - Urin laura tract infection, site not specified (6) Transaminitis Current visit: Yes Status: Acute Category: Medical Code(s): R74.0 - Nonspecific elevation of levels of transaminase and lactic acid dehydrogenase [LDH] (7) Cerebrovascular accident Current visit: No Status: Chronic Qualifiers: CVA mechanism: unspecified Qualified Code(s): I63.9 - Cerebral infarction, unspecified Category: Medical Code(s): I63.9 - Cerebral infarction, unspecified (8) Diabetes Current visit: No Status: Chronic Qualifiers: Diabetes mellitus type: type 1 Diabetes mellitus complication status: with unspecified complications Qualified Code(s): E10.8 - Type 1 diabetes mellitus with unspecified complications Category: Medical Code(s): E11.9 - Type 2 diabetes mellitus without complications (9) HTN (hypertension) Current visit: No Status: Chronic Qualifiers: Hypertension type: unspecified Qualified Code(s): I10 - Essential (primary) hypertension Category: Medical Code(s): I10 - Essential (primary) hypertension (10) Hypernatremia Current visit: Yes Status: Acute Category: Medical Code(s): E87.0 - Hyperosmolality and hypernatremia (11) Hyperchloremia Current visit: Yes Status: Acute Category: Medical Code(s): E87.8 - Other disorders of electrolyte and fluid balance, not elsewhere classified The patient's infection will respond to the chosen ABx?: Yes Is the patient receiving the right drug, dose, and route?: Yes Could a more targeted ABx be ordered?: No (E.COLI IN URINE SENSITIVE TO ROCEPHIN)
[2018-04-09 06:55] LABS: Anion Gap 12.8 mEq/L (5-15); Calcium 8.4 mg/dL (8.5-10.1); Potassium 3.8 mmoL/L (3.5-5.1)
--- NOTE | 2018-04-09 08:26 | Progress Note ---
Internal Medicine - PN: Subj *Date: 04/09/18 *Time: 08:23 Interval history: Patient is vastly improved this morning, and is very verbal, recognizes me and states that she is feeling "a lot better." Exam Vital signs and Labs for Last 24 Hours: Temp Pulse Resp BP Pulse Ox 97.3 F L 70 16 188/80 H 97 04/09/18 08:00 04/09/18 08:00 04/09/18 08:00 04/09/18 08:00 04/09/18 08:00 Laboratory Results - last 24 hr 04/08/18 08:10: Sodium 147 H, Potassium 3.9, Chloride 114 H, Carbon Dioxide 24, Anion Gap 12.9, BUN 44 H, Creatinine 1.20 H, Estimated Creat Clear 51, Estimated GFR 45 L, Est GFR ( Amer) 54 L, Glucose 119 H, Calcium 8.4 L, Phosphorus 3.4, Magnesium 1.7 04/08/18 11:03: POC Glucose 88 04/08/18 16:14: POC Glucose 82 04/08/18 20:41: POC Glucose 86 04/09/18 05:23: POC Glucose 100 04/09/18 06:07: Sodium 144, Potassium 3.8, Chloride 113 H, Carbon Dioxide 22, Anion Gap 12.8, BUN 40 H, Creatinine 1.15 H, Estimated Creat Clear 54, Estimated GFR 47 L, Est GFR ( Amer) 57 L, Glucose 81 D, Calcium 8.4 L I & O for Last 24 hours: Intake & Output 04/06/18 04/07/18 04/08/18 04/09/18 11:59 11:59 11:59 11:59 Intake Total 3566 / 3566 780 / 780 2575 / 2575 1900 / 1900 Output Total 950 / 950 1325 / 1325 1575 / 1575 1500 / 1500 Balance 2616 / 2616 -545 / -545 1000 / 1000 400 / 400 Weight 155 lb 5 oz 155 lb 5.015 oz Narrative: Patient is awake, alert, responsive, is able to follow commands. Still remains afflicted with her dense hemiparesis as previously noted. Anterior lung [place] are clear. Heart rate regular with occasional ectopic beats. Abdomen is soft and nontender. Skin turgor is vastly improved. Or opharynx is moist and clear. Assessment and Plan (1) Dehydration Current visit: Yes Status: Acute Category: Medical Code(s): E86.0 - Dehydration (2) YURI (acute kidney injury) Current visit: Yes Status: Acute Category: Medical Code(s): N17.9 - Acute kidney failure, unspecified Please note that patient appears to have acute kidney injury on top of chronic renal failure with stage II chronic kidney disease. (3) Weight loss Current visit: Yes Status: Acute Category: Medical Code(s): R63.4 - Abnormal weight loss (4) Loss of appetite Current visit: Yes Status: Acute Category: Medical Code(s): R63.0 - Anorexia (5) UTI (urinary tract infection) Current visit: Yes Status: Acute Category: Medical Code(s): N39.0 - Urinary tract infection, site not specified (6) Transaminitis Current visit: Yes Status: Acute Category: Medical Code(s): R74.0 - Nonspecific elevation of levels of transaminase and lactic acid dehydrogenase [LDH] (7) Cerebrovascular accident Current visit: No Status: Chronic Qualifiers: CVA mechanism: unspecified Qualified Code(s): I63.9 - Cerebral infarction, unspecified Category: Medical Code(s): I63.9 - Cerebral infarction, unspecified (8) Diabetes Current visit: No Status: Chronic Qualifiers: Diabetes mellitus type: type 1 Diabetes mellitus complication status: with unspecified complications Qualified Code(s): E10.8 - Type 1 diabetes mellitus with unspecified complications Category: Medical Code(s): E11.9 - Type 2 diabetes mellitus without complications (9) HTN (hypertension) Current visit: No Status: Chronic Qualifiers: Hypertension type: unspecified Qualified Code(s): I10 - Essential (primary) hypertension Category: Medical Code(s): I10 - Essential (primary) hypertension (10) Hypernatremia Current visit: Yes Status: Acute Category: Medical Code(s): E87.0 - Hyperosmolality and hypernatremia (11) Hyperchloremia Current visit: Yes Status: Acute Category: Medical Code(s): E87.8 - Other disorders of electrolyte and fluid balance, not elsewhere classified - Assessment and plan all Dx Assessment and Plan for all problems:: Patient's electrolyte abnormalities that have been listed above as ongoing problems have essentially normalized with adequate hydration. Her problem obviously was urinary tract infection which is being treated with ceftriaxone intravenously but also because of her lack of ability to maintain adequate free water intake because of her hemiparesis, frequent clouding of consciousness and swallowing difficulties. Given this patient's alertness level today and her retained intellectual/cognitive ability I think she would be a reasonable candidate for a G-tube. We have discussed this case with her family yesterday. They are discussing amongst themselves regarding the patient's previously stated wishes. They will get back to us today. I do not believe there is a necessarily wrong decision in this case-if the family wishes a G-tube we will initiate surgical consultation. If they do not I would recommend transferring back to her skilled care facility with a hospice consultation.
--- NOTE | 2018-04-09 12:16 | Consult Report ---
*Admission Date: 04/05/18 *Chief complaint: Feeding and nutrition problem *History of present illness: Patient is a 68-year-old white female with a history of prior stroke with residual left hemiplegia who is a resident of the [facility]. She was admitted several days ago with dehydration and electrolyte derangement with evidence of renal insufficiency. Surgery was consulted for possible gastrostomy tube placement. Review of Systems - Review of Systems Review of systems:: unable to obtain - *Neurologic Reports confusion, Reports weakness, Reports other [facility] History Medical History: Reports:: Diabetes Mellitus Type 2 Denies:: Cancer, Diabetes Mellitus Type 1, Internal Pacemaker, MRSA Other Medical History: Reports: Hypothyroidism Other Surgeries: No: Pacemaker Amputation: No Fractures: No - *Social History Smoking Status: Never smoker Alcohol Intake: never Substance Use Type: crack/cocaine Occupational Status: disabled Housing: long-term - Psychiatric History Expresses thoughts of harming self/others: None Suicide Plan Description: No Plan Meds Home Medications Medication Instructions Recorded Confirmed Type Acetaminophen [Tylenol] 650 mg PO Q6HP PRN 04/05/18 04/05/18 History Albuterol Sulfate [Albuterol HFA 1 puff IH Q4HP PRN 04/05/18 04/05/18 History Inhaler] Aspirin [Aspirin 81mg chewable 81 mg PO DAILY 04/05/18 04/05/18 History tab] Atorvastatin Calcium [Atorvastatin 40 mg PO HS 04/05/18 04/05/18 History 40mg Tab] Ibuprofen [Motrin 600mg 600 mg PO BIDP PRN 04/05/18 04/05/18 History Tablet] Insulin Glargine,Hum.rec.anlog 15 unit SQ HS 04/05/18 04/05/18 History [Insulin Glargine 100 Units/mL 3mL flexpen] L. Acidophilus/Strept/LA P-Noah 1 cap PO DAILY 04/05/18 04/05/18 History [Jory-Q Probiotic Capsule] Levothyroxine Sodium 150 mcg PO DAILY 04/05/18 04/05/18 History [Levothyroxine 150mcg (0.15mg) Tab] Lisinopril [Lisinopril 40mg Tablet] 40 mg PO DAILY 04/05/18 04/05/18 History Loperamide HCl [Loperamide] 2 mg PO Q4HP PRN 04/05/18 04/05/18 History Metoprolol Tartrate 100 mg PO BID 04/05/18 04/05/18 History Mirtazapine [Remeron] 30 mg PO HS 04/05/18 04/05/18 History Multivit with Iron,Hematinic 1 each PO DAILY 04/05/18 04/05/18 History [Central-Jerry] PARoxetine HCl [Paxil] 40 mg PO HS 04/05/18 04/05/18 History cloNIDine HCl [cloNIDine 0.1mg 0.1 mg PO Q4HP PRN 04/05/18 04/05/18 History Tablet] raNITIdine HCl [Ranitidine HCl] 150 mg PO BID 04/05/18 04/05/18 History risperiDONE [Risperdal 0.25mg 0.25 mg PO HS 04/05/18 04/05/18 History Tablet] Allergies Allergy/AdvReac Type Severity Reaction Status Date / Time strawberry Allergy Intermediate RASH,SOB,IT Verified 04/05/18 13:31 TAWANA codeine [CODEINE] Allergy Mild UNKNOWN Verified 04/05/18 13:31 Exam Vital signs and Labs for Last 24 Hours: Temp Pulse Resp BP Pulse Ox 97.4 F L 68 18 178/90 H 95 04/09/18 11:56 04/09/18 11:56 04/09/18 11:56 04/09/18 11:56 04/09/18 11:56 Laboratory Results - last 24 hr 04/08/18 16:14: POC Glucose 82 04/08/18 20:41: POC Glucose 86 04/09/18 05:23: POC Glucose 100 04/09/18 06:07: Sodium 144, Potassium 3.8, Chloride 113 H, Carbon Dioxide 22, Anion Gap 12.8, BUN 40 H, Creatinine 1.15 H, Estimated Creat Clear 54, Estimated GFR 47 L, Est GFR ( Amer) 57 L, Glucose 81 D, Calcium 8.4 L 04/09/18 11:27: POC Glucose 85 I & O for Last 24 hours: Intake & Output 04/07/18 04/08/18 04/09/18 04/10/18 11:59 11:59 11:59 11:59 Intake Total 780 / 780 2575 / 2575 1900 / 1900 Output Total 1325 / 1325 1575 / 1575 1500 / 1500 Balance -545 / -545 1000 / 1000 400 / 400 Weight 155 lb 5.015 oz - Constitutional somnolent - *Routine HEENT Exam Head: Present: normocephalic - *Routine Respiratory Exam Present: decreased breath sounds - *Routine Cardiovascular Exam Present: RRR - *Routine Abdominal Exam Present: soft Results - Labs 04/07/18 05:55 04/09/18 06:07 Laboratory Results - last 24 hr 04/08/18 16:14: POC Glucose 82 04/08/18 20:41: POC Glucose 86 04/09/18 05:23: POC Glucose 100 04/09/18 06:07: Sodium 144, Potassium 3.8, Chloride 113 H, Carbon Dioxide 22, Anion Gap 12.8, BUN 40 H, Creatinine 1.15 H, Estimated Creat Clear 54, Estimated GFR 47 L, Est GFR ( Amer) 57 L, Glucose 81 D, Calcium 8.4 L 04/09/18 11:27: POC Glucose 85 Assessment and Plan (1) Dehydration Current visit: Yes Status: Acute Category: Medical Code(s): E86.0 - Dehydration (2) YURI (acute kidney injury) Current visit: Yes Status: Acute Category: Medical Code(s): N17.9 - Acute kidney failure, unspecified (3) Weight loss Current visit: Yes Status: Acute Category: Medical Code(s): R63.4 - Abnormal weight loss (4) Loss of appetite Current visit: Yes Status: Acute Category: Medical Code(s): R63.0 - Anorexia (5) UTI (urinary tract infection) Current visit: Yes Status: Acute Category: Medical Code(s): N39.0 - Urinary tract infection, site not specified (6) Transaminitis Current visit: Yes Status: Acute Category: Medical Code(s): R74.0 - Nonspecific elevation of levels of transaminase and lactic acid dehydrogenase [LDH] (7) Cerebrovascular accident Current visit: No Status: Chronic Qualifiers: CVA mechanism: unspecified Qualified Code(s): I63.9 - Cerebral infarction, unspecified Category: Medical Code(s): I63.9 - Cerebral infarction, unspecified (8) Diabetes Current visit: No Status: Chronic Qualifiers: Diabetes mellitus type: type 1 Diabetes mellitus complication status: with unspecified complications Qualified Code(s): E10.8 - Type 1 diabetes mellitus with unspecified complications Category: Medical Code(s): E11.9 - Type 2 diabetes mellitus without complications (9) HTN (hypertension) Current visit: No Status: Chronic Qualifiers: Hypertension type: unspecified Qualified Code(s): I10 - Essential (primary) hypertension Category: Medical Code(s): I10 - Essential (primary) hypertension (10) Hypernatremia Current visit: Yes Status: Acute Category: Medical Code(s): E87.0 - Hyperosmolality and hypernatremia (11) Hyperchloremia Current visit: Yes Status: Acute Category: Medical Code(s): E87.8 - Other disorders of electrolyte and fluid balance, not elsewhere classified - Assessment and plan all Dx Assessment and Plan for all problems:: Will place patient on n.p.o. status after midnight tonight for possible gastrostomy tube placement tomorrow.
--- NOTE | 2018-04-10 08:30 | Progress Note ---
Internal Medicine - PN: Subj *Date: 04/10/18 *Time: 08:29 Interval history: Patient stable overnight. Electrolytes have normalized. Continues to be at baseline level of alertness. No fevers, shortness of breath, diarrhea, nausea or vomiting. Exam Vital signs and Labs for Last 24 Hours: Temp Pulse Resp BP Pulse Ox 98.1 F 61 18 155/70 H 94 L 04/10/18 08:00 04/10/18 08:00 04/10/18 08:00 04/10/18 08:00 04/10/18 08:00 Laboratory Results - last 24 hr 04/09/18 11:27: POC Glucose 85 04/09/18 16:25: POC Glucose 104 04/09/18 21:31: POC Glucose 102 04/10/18 06:37: POC Glucose 95 I & O for Last 24 hours: Intake & Output 04/07/18 04/08/18 04/09/18 04/10/18 23:59 23:59 23:59 23:59 Intake Total 360 / 360 3995 / 3995 1605 / 1605 1525 / 1525 Output Total 1350 / 1350 1475 / 1475 1575 / 1575 Balance -990 / -990 2520 / 2520 30 / 30 1525 / 1525 Weight 79.095 kg Narrative: Patient is awake, alert, responsive, is able to follow commands. Still remains afflicted with her dense hemiparesis as previously noted. Anterior lung milton are clear. Heart rate regular with occasional ectopic beats. Abdomen is soft and nontender. Skin turgor is vastly improved. Oropharynx is moist and clear. Assessment and Plan (1) Dehydration Current visit: Yes Status: Acute Category: Medical Code(s): E86.0 - Dehydration (2) YURI (acute kidney injury) Current visit: Yes Status: Acute Category: Medical Code(s): N17.9 - Acute kidney failure, unspecified (3) Weight loss Current visit: Yes Status: Acute Category: Medical Code(s): R63.4 - Abnormal weight loss (4) Loss of appetite Current visit: Yes Status: Acute Category: Medical Code(s): R63.0 - Anorexia (5) UTI (urinary tract infection) Current visit: Yes Status: Acute Category: Medical Code(s): N39.0 - Urinary tract infection, site not specified (6) Transaminitis Current visit: Yes Status: Acute Category: Medical Code(s): R74.0 - Nonsp ecific elevation of levels of transaminase and lactic acid dehydrogenase [LDH] (7) Cerebrovascular accident Current visit: No Status: Chronic Qualifiers: CVA mechanism: unspecified Qualified Code(s): I63.9 - Cerebral infarction, unspecified Category: Medical Code(s): I63.9 - Cerebral infarction, unspecified (8) Diabetes Current visit: No Status: Chronic Qualifiers: Diabetes mellitus type: type 1 Diabetes mellitus complication status: with unspecified complications Qualified Code(s): E10.8 - Type 1 diabetes mellitus with unspecified complications Category: Medical Code(s): E11.9 - Type 2 diabetes mellitus without complications (9) HTN (hypertension) Current visit: No Status: Chronic Qualifiers: Hypertension type: unspecified Qualified Code(s): I10 - Essential (primary) hypertension Category: Medical Code(s): I10 - Essential (primary) hypertension (10) Hypernatremia Current visit: Yes Status: Acute Category: Medical Code(s): E87.0 - Hyperosmolality and hypernatremia (11) Hyperchloremia Current visit: Yes Status: Acute Category: Medical Code(s): E87.8 - Other disorders of electrolyte and fluid balance, not elsewhere classified - Assessment and plan all Dx Assessment and Plan for all problems:: Plan for G-tube placement today. Nutrition consulted to assist with calculation of tube feed needs in free water needs. -Monitor overnight. If tolerating feeds, will be stable to get back to skilled nursing in the coming days
--- NOTE | 2018-04-10 12:47 | Progress Note ---
[facility] Anesthesia Checklist - Patient Identification Patient Identification: Arm Band, Verbal (Name & ) - Structural Data Admitted From: Inpatient Planned Operative Procedure/s: PEG tube placement Consent for Planned Operative Procedure(s) Verified: Yes Verified Documents: Surgical Consent, History and Physical - NPO Status Verified Time NPO: 00:00 - Additional verifications Patient : No Anesthesia Reactions: No - Airway Assessment C-Spine Mobility Assessed: Yes TMJ Mobility Assessed: Yes Dentition: Poor Dentition - Neurological Assessment Level of Consciousness: Awake Hx Seizures: No Numbness or tingling in extremities: No (left hemiplegia) - Anesthesia Plan Anesthesia Risk discussed: Yes Anesthesia Plan: Verified ASA Class: III Anesthesia Type: [facility] History I have reviewed the patient's past medical history: Yes Medical History: Reports:: Asthma, Cancer (Breast CA), Cerebrovascular Accident, Diabetes Mellitus Type 2, Gastroesophageal Reflux Disease(GERD), Hyperlipidemia, Hypertension Denies:: Diabetes Mellitus Type 1, Internal Pacemaker, MRSA Other Medical History: Reports: Hypothyroidism, Thyroid Disease (Thyroid nodule) Other Surgeries: No: Pacemaker Amputation: No Fractures: No - *Social History Smoking Status: Never smoker Alcohol Intake: never Substance Use Type: crack/cocaine Occupational Status: disabled Housing: detention - Psychiatric History Expresses thoughts of harming self/others: None Suicide Plan Description: No Plan
--- NOTE | 2018-04-10 13:43 | Procedure Note ---
- Procedure: Date: 04/10/18 Procedure Performed:: Placement of 20 Vietnamese pull type percutaneous endoscopic gastrostomy tube Indications:: Patient is a 68-year-old white female with prior stroke who is a custodial. She had a feeding problem with poor oral intake and dehydration. Surgical c onsultation was placed for PEG tube. Performing Provider:: Berny Greene MD Referring Provider:: Laron Warner MD Sedation:: Propofol Procedure:: Consent was obtained. Patient was maintained on the hospital bed. She was in the supine position. Adequate intravenous sedation relieved with anesthesia titration of propofol. Olympus endoscope was inserted via the oropharynx and advanced through the esophagus. Stomach was cannulated and insufflated. There was good light reflex in the mid epigastrium on the anterior abdominal wall. Abdomen was prepped and draped. Local anesthetic was infiltrated superficially and then deeply at the site of the light reflex. Approximately 1 cm incision was made. Catheter was inserted through the incision into the gastric lumen. This was grasped with the loop snare through the endoscope. Loop guidewire was then inserted through the catheter. Catheter was removed and loop guidewire was secured with the loop snare. Endoscope was then withdrawn through the oropharynx while pulling the guidewire retrograde through the esophagus. The 20 Vietnamese pull type PEG was then secured to the loop guidewire which was then pulled through the oropharynx to exit the abdomen at the incisional site. The obturator and clamp were secured to the PEG tube. The PEG tube was then cut to the appropriate length and the feeding infusion apparatus was secured. Antibiotic ointment was placed at the incision site and dressing was applied. Completion endoscopy was performed inserting the endoscope via the oropharynx through the esophagus once again. PEG tube appeared to be in a good position. Stomach was desufflated and the endoscope was withdrawn. Findings:: Unremarkable gastric lining Recommendations:: Recommend refraining from using PEG tube until tomorrow morning Complications:: None immediately apparent Estimated blood obtained (mL): 10
--- NOTE | 2018-04-11 06:46 | Progress Note ---
Subjective Patient reports: no new complaints Exam Vital signs and Labs for Last 24 Hours: Temp Pulse Resp BP Pulse Ox 98.8 F 67 14 176/86 H 96 04/11/18 04:00 04/11/18 04:00 04/11/18 04:00 04/11/18 04:00 04/11/18 04:00 Laboratory Results - last 24 hr 04/10/18 11:07: POC Glucose 88 04/10/18 16:04: POC Glucose 86 04/10/18 20:37: POC Glucose 81 I & O for Last 24 hours: Intake & Output 04/08/18 04/09/18 04/10/18 04/11/18 11:59 11:59 11:59 11:59 Intake Total 2575 / 2575 1900 / 1900 2770 / 2770 1856 / 1856 Output Total 1575 / 1575 1500 / 1500 600 / 600 Balance 1000 / 1000 400 / 400 2170 / 2170 1856 / 1856 Weight 174 lb 6 oz Microbiology Reports for the Last 24 Hours: Microbiology 04/05/18 13:55 Blood Blood Culture - Final NO GROWTH AFTER 5 DAYS 04/05/18 13:50 Blood Blood Culture - Final NO GROWTH AFTER 5 DAYS - *Routine Abdominal Exam Present: soft. Absent: tenderness Comments: PEG site clean. Progress Note: A&P (1) Dehydration Status: Acute Current Visit: Yes (2) YURI (acute kidney injury) Status: Acute Current Visit: Yes (3) Weight loss Status: Acute Current Visit: Yes (4) Loss of appetite Status: Acute Current Visit: Yes (5) UTI (urinary tract infection) Status: Acute Current Visit: Yes (6) Transaminitis Status: Acute Current Visit: Yes (7) Cerebrovascular accident Status: Chronic Current Visit: No (8) Diabetes Status: Chronic Current Visit: No (9) HTN (hypertension) Status: Chronic Current Visit: No (10) Hypernatremia Status: Acute Current Visit: Yes (11) Hyperchloremia Status: Acute Current Visit: Yes Assessment and Plan for All Diagnoses:: May begin using PEG.
[2018-04-11 08:01] LABS: Basophils % 0.3 % (0.1-2.0); Eosinophils # 0.2 K/mm3 (0.0-0.4); Eosinophils % 2.9 % (0.1-12.0); Hematocrit 33.8 % (37.0-47.0); Hemoglobin 10.9 g/dL (12.2-16.2); Lymphocytes # 1.9 K/mm3 (0.7-4.5); Lymphocytes % 27.6 % (10-50); Mean Corpuscular HGB Conc 32.3 g/dL (31.8-35.4); Mean Corpuscular Hemoglobin 31.2 pg (27.0-31.2); Mean Corpuscular Volume 96.7 fl (81-99); Mean Platelet Volume 8.7 fl (7.4-10.4); Monocytes # 0.4 K/mm3 (0.1-1.0); Monocytes % 5.8 % (1.7-9.3); Neutrophils # 4.3 K/mm3 (1.8-7.8); Neutrophils % 63.4 % (37.0-80.0); Platelet Count 353 K/mm3 (142-424); Red Blood Count 3.49 M/mm3 (4.20-5.40); Red Cell Distribution Width 14.7 % (11.5-17.5); White Blood Count 6.8 K/mm3 (4.8-10.8)
--- NOTE | 2018-04-11 08:08 | Progress Note ---
Internal Medicine - PN: Subj *Date: 04/11/18 *Time: 08:07 Interval history: Feels better - more talkative. Did well with Gtube placement yesterday. Exam Vital signs and Labs for Last 24 Hours: Temp Pulse Resp BP Pulse Ox 98.8 F 67 14 176/86 H 96 04/11/18 04:00 04/11/18 04:00 04/11/18 04:00 04/11/18 04:00 04/11/18 04:00 Laboratory Results - last 24 hr 04/10/18 11:07: POC Glucose 88 04/10/18 16:04: POC Glucose 86 04/10/18 20:37: POC Glucose 81 04/11/18 07:34: WBC 6.8, RBC 3.49 L, Hgb 10.9 L, Hct 33.8 L, MCV 96.7, MCH 31.2, MCHC 32.3, RDW 14.7, Plt Count 353, MPV 8.7, Neut % (Auto) 63.4, Lymph % (Auto) 27.6, Harding % (Auto) 5.8, Eos % (Auto) 2.9, Baso % (Auto) 0.3, Neut # (Auto) 4.3, Lymph # (Auto) 1.9, Harding # (Auto) 0.4, Eos # (Auto) 0.2, Baso # (Auto) 0.0 I & O for Last 24 hours: Intake & Output 04/08/18 04/09/18 04/10/18 04/11/18 11:59 11:59 11:59 11:59 Intake Total 2575 / 2575 1900 / 1900 2770 / 2770 1856 / 1856 Output Total 1575 / 1575 1500 / 1500 600 / 600 Balance 1000 / 1000 400 / 400 2170 / 2170 1856 / 1856 Weight 174 lb 6 oz Microbiology Reports for the Last 24 Hours: Microbiology 04/05/18 13:55 Blood Blood Culture - Final NO GROWTH AFTER 5 DAYS 04/05/18 13:50 Blood Blood Culture - Final NO GROWTH AFTER 5 DAYS Narrative: Patient is alert. Talkative. Feels well. Denies pain in her abdomen. Anterior lung milton are clear. Heart rate regular. Abdomen soft, G-tube site looks good. Previously noted hemiparesis is still present. Assessment and Plan (1) Dehydration Current visit: Yes Status: Acute Category: Medical Code(s): E86.0 - Dehydration (2) YURI (acute kidney injury) Current visit: Yes Status: Acute Category: Medical Code(s): N17.9 - Acute kidney failure, unspecified (3) Weight loss Current visit: Yes Status: Acute Category: Medical Code(s): R63.4 - Abnormal weight loss (4) Loss of appetite Current visit: Yes Status: Acute Category: Medical Code(s): R63.0 - Anorexia (5) UTI (urinary tract infection) Current visit: Yes Status: Acute Category: Medical Code(s): N39.0 - Urinary tract infection, site not specified (6) Transaminitis Current visit: Yes Status: Acute Category: Medical Code(s): R74.0 - Nonspecific elevation of levels of transaminase and lactic acid dehydrogenase [LDH] (7) Cerebrovascular accident Current visit: No Status: Chronic Qualifiers: CVA mechanism: unspecified Qualified Code(s): I63.9 - Cerebral infarction, unspecified Category: Medical Code(s): I63.9 - Cerebral infarction, unspecified (8) Diabetes Current visit: No Status: Chronic Qualifiers: Diabetes mellitus type: type 1 Diabetes mellitus complication status: with unspecified complications Qualified Code(s): E10.8 - Type 1 diabetes mellitus with unspecified complications Category: Medical Code(s): E11.9 - Type 2 diabetes mellitus without complications (9) HTN (hypertension) Current visit: No Status: Chronic Qualifiers: Hypertension type: unspecified Qualified Code(s): I10 - Essential (primary) hypertension Category: Medical Code(s): I10 - Essential (primary) hypertension (10) Hypernatremia Current visit: Yes Status: Acute Category: Medical Code(s): E87.0 - Hyperosmolality and hypernatremia (11) Hyperchloremia Current visit: Yes Status: Acute Category: Medical Code(s): E87.8 - Other disorders of electrolyte and fluid balance, not elsewhere classified - Assessment and plan all Dx Assessment and Plan for all problems:: G-tube placement went well. Initiate tube feedings and free water recommendations today per dietitian. Hypertension has accelerated after patient has been rehydrated and is feels more active. Add hydralazine 25 3 times daily today. If blood pressures well controlled and tube feedings are going well transfer back to [facility] tomorrow.
[2018-04-11 08:12] LABS: Anion Gap 14.5 mEq/L (5-15); Calcium 7.7 mg/dL (8.5-10.1)
[2018-04-11 08:16] LABS: Potassium 4.5 mmoL/L (3.5-5.1)
--- NOTE | 2018-04-12 08:01 | Discharge Summary ---
General - General Admission date:: 04/05/18 Discharge date: 04/12/18 HPI HPI: 68 year old female with a history of breast cancer, diabetes, hypertension, hyperlipidemia, CVA with left sided hemiplegia and hypothyroidism who resides at [facility] has had ongoing issues with weight loss over the last two months. Patient has lost approx 40 pounds over the last 2-3 months. She was started on Remeron for appetite and dietary supplements were added were added which continued weight loss. She was sent to ENT for evaluation of thyroid nodules who recommended FU US in 6 months. Soft tissue mass was found on the right side of her neck and she was scheduled for soft tissue US of the neck and CT of chest, abdomen and pelvis to evaluate for underlying pathology. Labs were obtained per radiology protocol on Monday which showed creatinine of 1.4 and potassium of 5.8. Lasix and potassium were stopped. Patient was brought to [facility] today for CT Scan and Ultrasound. Repeat labs showed BUN 82 with creatinine of around 2.3. Baseline creatine is less than 1. Patient was sent to outpatient infusion for IVF's and additional labs. She was found to have transaminitis, dehydration and UTI. Patient reports she feels "weak." Denies any cough, cold, congestion or urinary symptoms. Patient was direct admitted to acute care for IVF's, IV antibiotics and further evaluation. Hospital Course Hospital Course: Patient was admitted to acute care. She was aggressively hydrated with IVF's and creatinine returned to baseline of less than one. She was found to have UTI and was started on ceftriaxone. Urine culture grew E. Coli which was sensitive to cephalosporins. Speech was consulted for swallowing evaluation who recommended pureed diet with nectar thick liquids. Due to her limited intake, weight loss and poor appetite , surgery was consulted and a peg tube was placed. She has tolerated bolus feedings well with no residuals. Mental status has returned to baseline. She feels well this morning, is smiling and without complaints. Discharge back to [facility] on cefdinir 300 mg po BID x 10 days for UTI. 2000 calorie ADA diet- pureed with nectar thick liquids, whole milk with each meal and soup in mugs. Glucerna 250 ML every 6 hours per GT. Facility circus train supervisor to evaluate and calculate free water needs. PT/OT/ST evaluate and treat. Check CBC and CMP on next lab day. FU with myself on Monday. Objective Vital signs: Temp Pulse Resp BP Pulse Ox 98.1 F 71 16 177/82 H 97 04/12/18 04:00 04/12/18 04:00 04/12/18 04:00 04/12/18 04:00 04/12/18 04:00 Narrative: Alert and oriented at baseline. Rate and rhythm regular. No LE edema. Lung sounds clear and equal. Abdomen soft and nontender. left sided hemiplegia at baseline Results Labs on day of discharge: Labs from last 24 hours 04/12/18 04/11/18 04/11/18 06:10 20:19 17:28 WBC RBC Hgb Hct MCV MCH MCHC RDW Plt Count MPV Neut % (Auto) Lymph % (Auto) Cassia % (Auto) Eos % (Auto) Baso % (Auto) Neut # (Auto) Lymph # (Auto) Cassia # (Auto) Eos # (Auto) Baso # (Auto) Sodium Potassium Chloride Carbon Dioxide Anion Gap BUN Creatinine Estimated Creat Clear Estimated GFR Est GFR ( Amer) Glucose POC Glucose 138 H 121 H 113 H Calcium 04/11/18 04/11/18 04/11/18 12:06 07:34 07:34 WBC 6.8 RBC 3.49 L Hgb 10.9 L Hct 33.8 L MCV 96.7 MCH 31.2 MCHC 32.3 RDW 14.7 Plt Count 353 MPV 8.7 Neut % (Auto) 63.4 Lymph % (Auto) 27.6 Cassia % (Auto) 5.8 Eos % (Auto) 2.9 Baso % (Auto) 0.3 Neut # (Auto) 4.3 Lymph # (Auto) 1.9 Cassia # (Auto) 0.4 Eos # (Auto) 0.2 Baso # (Auto) 0.0 Sodium 139 Potassium 4.5 Chloride 108 H Carbon Dioxide 21 Anion Gap 14.5 BUN 29 H D Creatinine 0.87 D Estimated Creat Clear 69 Estimated GFR 65 Est GFR ( Amer) 79 D Glucose 82 POC Glucose 73 Calcium 7.7 L 04/11/18 06:09 WBC RBC Hgb Hct MCV MCH MCHC RDW Plt Count MPV Neut % (Auto) Lymph % (Auto) Cassia % (Auto) Eos % (Auto) Baso % (Auto) Neut # (Auto) Lymph # (Auto) Cassia # (Auto) Eos # (Auto) Baso # (Auto) Sodium Potassium Chloride Carbon Dioxide Anion Gap BUN Creatinine Estimated Creat Clear Estimated GFR Est GFR ( Amer) Glucose POC Glucose 78 Calcium DS: Diagnosis - Discharge Diagnosis (1) Dehydration Status: Acute (2) YURI (acute kidney injury) Status: Acute (3) Weight loss Status: Acute (4) Loss of appetite Status: Acute (5) UTI (urinary tract infection) Status: Acute (6) Transaminitis Status: Acute (7) Cerebrovascular accident Status: Chronic (8) Diabetes Status: Chronic (9) HTN (hypertension) Status: Chronic (10) Hypernatremia Status: Acute (11) Hyperchloremia Status: Acute Discharge Plan - Patient Discharge Instructions ACTIVITY: Up in chair DIET: other Additional Instructions: See above Patient Instructions: How to Care for Your PEG Tube, DI for Dehydration -- Adult, DI for Percutaneous Endoscopic Gastrostomy, DI for Urinary Tract Infection (UTI), DI for Surgical Site Infection - Follow up Plan Follow up with: Lore Marroquin APRN [Nurse Practitioner] - 04/17/18 Home Medications: Home Medications Medication Instructions Recorded Confirmed Type Acetaminophen [Tylenol] 650 mg PO Q6HP PRN 04/05/18 04/05/18 History Albuterol Sulfate [Albuterol HFA 1 puff IH Q4HP PRN 04/05/18 04/05/18 History Inhaler] Aspirin [Aspirin 81mg chewable 81 mg PO DAILY 04/05/18 04/05/18 History tab] Atorvastatin Calcium [Atorvastatin 40 mg PO HS 04/05/18 04/05/18 History 40mg Tab] Ibuprofen [Motrin 600mg 600 mg PO BIDP PRN 04/05/18 04/05/18 History Tablet] Insulin Glargine,Hum.rec.anlog 15 unit SQ HS 04/05/18 04/05/18 History [Insulin Glargine 100 Units/mL 3mL flexpen] L. Acidophilus/Strept/LA P-Noah 1 cap PO DAILY 04/05/18 04/05/18 History [Jory-Q Probiotic Capsule] Levothyroxine Sodium 150 mcg PO DAILY 04/05/18 04/05/18 History [Levothyroxine 150mcg (0.15mg) Tab] Lisinopril [Lisinopril 40mg Tablet] 40 mg PO DAILY 04/05/18 04/05/18 History Loperamide HCl [Loperamide] 2 mg PO Q4HP PRN 04/05/18 04/05/18 History Metoprolol Tartrate 100 mg PO BID 04/05/18 04/05/18 History Mirtazapine [Remeron] 30 mg PO HS 04/05/18 04/05/18 History Multivit with Iron,Hematinic 1 each PO DAILY 04/05/18 04/05/18 History [Central-Jerry] PARoxetine HCl [Paxil] 40 mg PO HS 04/05/18 04/05/18 History cloNIDine HCl [cloNIDine 0.1mg 0.1 mg PO Q4HP PRN 04/05/18 04/05/18 History Tablet] raNITIdine HCl [Ranitidine HCl] 150 mg PO BID 04/05/18 04/05/18 History risperiDONE [Risperdal 0.25mg 0.25 mg PO HS 04/05/18 04/05/18 History Tablet] Prescriptions/Medication Reconciliation: New Cefdinir [Omnicef 300mg Capsule] 300 mg PO BID #20 cap Continue Albuterol Sulfate [Albuterol HFA Inhaler] 1 puff IH Q4HP PRN PRN Reason: Shortness Of Breath Or Wheezing Loperamide HCl [Loperamide] 2 mg PO Q4HP PRN PRN Reason: Diarrhea Ibuprofen [Motrin 600mg Tablet] 600 mg PO BIDP PRN PRN Reason: pain cloNIDine HCl [cloNIDine 0.1mg Tablet] 0.1 mg PO Q4HP PRN PRN Reason: high blood pressure Acetaminophen [Tylenol] 650 mg PO Q6HP PRN PRN Reason: pain Mirtazapine [Remeron] 30 mg PO HS Metoprolol Tartrate 100 mg PO BID Levothyroxine Sodium [Levothyroxine 150mcg (0.15mg) Tab] 150 mcg PO DAILY raNITIdine HCl [Ranitidine HCl] 150 mg PO BID L. Acidophilus/Strept/LA P-Noah [Jory-Q Probiotic Capsule] 1 cap PO DAILY Multivit with Iron,Hematinic [Central-Jerry] 1 each PO DAILY Aspirin [Aspirin 81mg chewable tab] 81 mg PO DAILY Insulin Glargine,Hum.rec.anlog [Insulin Glargine 100 Units/mL 3mL flexpen] 15 unit SQ HS PARoxetine HCl [Paxil] 40 mg PO HS Atorvastatin Calcium [Atorvastatin 40mg Tab] 40 mg PO HS Lisinopril [Lisinopril 40mg Tablet] 40 mg PO DAILY Discontinued risperiDONE [Risperdal 0.25mg Tablet] 0.25 mg PO HS
== END 2018-04-12 10:35 ==
LOC: 2ND 09:12 → RAD 09:12 → OBSVTOIN 12:49 → 2ND 13:03
PROVIDERS: ADMIT Internal Medicine Adolescent Medicine; ATTEND Internal Medicine Adolescent Medicine